=== PATIENT | female | born 1950 | race Caucasian/White ===

== ENCOUNTER 2023-02-13 16:53 | Emergency (ER) | payer MEDICARE, SELFPAY ==
[2023-02-13 17:08] VITALS: BP 129/58; PULSE 57; RESP 18; TEMP 36.8; O2SAT 97
--- NOTE | 2023-02-13 17:16 | ED.SKABFB ---
HPI - Skin/Abscess/Foreign Bdy General Stated complaint: Skin Sore/Lip Source: patient and RN notes reviewed History of Present Illness HPI narrative: 72 yo F presents to urgent care with complaints of a blister to her lower lip. PT states she burnt her lip on a cappuccino 1 week ago and it hasn't healed yet. Pt denies any drainage from it. Denies any fevers, chlils, chest pain, SOB, or vomiting. Pt has been putting Blistex on it. Related Data Allergies Allergy/AdvReac Type Severity Reaction Status Date / Time Sulfa (Sulfonamide Allergy Rash Verified 02/13/23 17:26 Antibiotics) Review of Systems Review of Systems: CONSTITUTIONAL: Denies fever, chills, or sweats. EYES: Denies visual changes, redness, or discharge. ENT: Denies otalgia and sore throat CARDIOVASCULAR: Denies chest pain, palpitations, or edema. RESPIRATORY: Denies cough or dyspnea. GASTROINTESTINAL: Denies abdominal pain, nausea, vomiting, or diarrhea. GENITOURINARY: Denies dysuria or hematuria. SKIN: blister on the mid, lower, outer lip MUSCULOSKELETAL: Denies back pain, joint pain, or myalgia. NEUROLOGIC: Denies headache, numbness, or weakness. Pertinent positives per HPI. PMFSH Comments At the time of my signature, I reviewed and agree with the nursing past medical, surgical, social, and family history. There is no relevant family history pertinent to the patient complaint. Exam Narrative: GENERAL: This is a well-nourished, well-developed patient, in no apparent distress. HEAD: normocephalic, atraumatic. EYES: Sclera clear/white. Vision is grossly intact. EARS: External ears normal, auditory canals clear and without drainage. Hearing grossly intact. NOSE: External nose normal with no obvious nasal discharge, nares without redness, no rhinorrhea. THROAT: Mucous membranes moist, posterior pharynx clear. NECK: Neck supple, non-tender without lymphadenopathy, masses or thyromegaly. CARDIOVASCULAR: Regular rate RESPIRATORY: No respiratory distress SKIN: blister to mid lower, outer, lip NEURO: awake, alert, and oriented to person, place and time. There were no obvious focal neurologic abnormalities. Course Course Level of Care: Express Care Visit Vital Signs Vital signs: Vital Signs Temperature 98.2 F 02/13/23 17:08 Pulse Rate 57 L 02/13/23 17:08 Respiratory Rate 18 02/13/23 17:08 Blood Pressure 129/58 L 02/13/23 17:08 Pulse Oximetry 97 02/13/23 17:08 Oxygen Delivery Room Air 02/13/23 17:08 Temperature 98.2 F 02/13/23 17:08 Pulse Rate 57 L 02/13/23 17:08 Respiratory Rate 18 02/13/23 17:08 Blood Pressure 129/58 L 02/13/23 17:08 Pulse Oximetry 97 02/13/23 17:08 Oxygen Delivery Room Air 02/13/23 17:08 Reviewed MDM - Skin/Abscess/Foreign Bdy MDM Narrative Medical decision making narrative: Take the antibiotics as directed. May use Neosporin or triple antibiotic ointment on blister twice a day x 7 days. Follow up with soda fountain manager. Go to the ER with any new or worsening symptoms. Differential Diagnosis Differential diagnosis: Likely abscess of skin or subcutaneous tissue, urticaria, herpes zoster, cellulitis and impetigo Critical Care Time Critical Care Time Critical Care Time: No Discharge Plan Discharge Clinical Impression: Blister Patient Disposition: Home, Self-Care Condition: Stable Instructions: Antibiotic Form, Blister (ED) Additional Instructions: Take the antibiotics as directed. May use Neosporin or triple antibiotic ointment on blister twice a day x 7 days. Follow up with soda fountain manager. Go to the ER with any new or worsening symptoms. Prescriptions: New cephalexin 500 mg capsule 500 mg PO Q12H 7 Days Qty: 14 0RF Follow-up/Referrals: Rancho,Sujey Roberts MD [Primary Care Provider] - Time of Disposition: 17:26
== END 2023-02-13 17:29 | disposition home or self-care (01) ==
PROVIDERS: Emergency Provider Nurse Practitioner Family; PCP Family Medicine
DX: S00.521A Blister (nonthermal) of lip, initial encounter (principal); X58.XXXA Exposure to other specified factors, initial encounter; E78.00 Pure hypercholesterolemia, unspecified
CPT/HCPCS: 99213; G0463